=== PATIENT | female | born 1990 | race Caucasian/White ===

== ENCOUNTER → 2018-09-21 | Outpatient (CLI) | END | disposition home or self-care (01) ==

== ENCOUNTER 2019-05-08 06:15 | Inpatient (IN) | payer MEDICAID ==
[~2019-05-08] VITALS: Ht 160 cm; Wt 80.4 kg
[~2019-05-08 06:15] MED LIST: CALC667C PO; FER325 PO; IBUP-1544 PO; PERCOCET PO; PREN1TAB13 PO
[2019-05-08] MEDS ORDERED: LACTATED RINGER'S 1,000 ML IV SCH (06:43)
[2019-05-08 06:53] VITALS: Ht 160 cm; Wt 80.4 kg
[2019-05-08] MEDS ORDERED: IBUPROFEN 600 MG TAB PO PRN (07:00)
[2019-05-08] MEDS ORDERED: MINERAL OIL LIGHT 10 ML VIAL TOP PRN (07:00)
[2019-05-08] MEDS ORDERED: LIDOCAINE 1% (MPF) 30 ML INJ INJ PRN (07:00)
[2019-05-08] MEDS ORDERED: OXYTOCIN 30 UNITS/LR 500 ML IV SCH ×2 (07:00)
[2019-05-08] MEDS ORDERED: MISOPROSTOL 200 MCG TAB PR PRN ×2 (07:00→11:00)
[2019-05-08] MEDS ORDERED: OXYTOCIN 30 UNITS/LR 500 ML IV PRN ×2 (07:00→11:00)
[2019-05-08] MEDS ORDERED: METHYLERGONOVINE 0.2 MG INJ IM PRN ×2 (07:00→11:00)
[2019-05-08] MEDS ORDERED: CARBOPROST 250 MCG INJ IM PRN ×2 (07:00→11:00)
--- NOTE | 2019-05-08 07:15 | TRIAGE ---
OB Triage Datetime Report Generated by CPN: 05/08/2019 07:15 Datetime: 05/08/2019 07:13 Assessment Type: Admission Assessment Vaginal Bleeding: None Maternal Assessment Level of Consciousness: Keenly Alert, Responsive DTR's/Clonus: DTRs 2+; No Clonus Headache: Denies Blurred Vision: No Respiratory Effort: Unlabored; Regular Rhythm; Equal Expansion Breath Sounds, Left: Clear and Equal Breath Sounds, Right: Clear and Equal Nausea/Vomiting: Denies RUQ Epigastric Pain: Denies Facial Edema: None Fall Risk Assessment History of Falling: (0) No Secondary Diagnosis: (0) No Ambulatory Aid: (0) Bedrest/Nurse Assist Gait: (0) Normal/Bedrest/Immobile Mental Status: (0) Oriented to Own Ability Pain Assessment Pain Scale: 10 Pain Presence: Intermittent Pain Type: Contraction Pain Location: Abdomen; Back Pain Goal: 10 Datetime: 05/08/2019 06:42 Time of Arrival: 05/08/2019 06:15 EGA: 39.3 Arrived By: Wheelchair Arrived From: Home Chief Complaint: UC's since 0 Movement: Present Contractions: Regular Time Contractions Began: 05/08/2019 04:30 Contractions: Every 3 minutes Rupture of Membranes: Denies Vaginal Bleeding: None Vaginal Discharge: Denies Recent Sexual Intercouse: Denies Abdominal Trauma: Not Applicable Patient Complaints: Contractions Time Provider Notified: 05/08/2019 06:35 Provider Notified: Dr. Cedeño Initial Plan: CEFM, VE Datetime: 05/08/2019 06:32 Vaginal Exam Dilatation (cms): 9.0 Effacement (%): 90 Station: -1 Exam By: Tao Diane RN Vaginal Bleeding: Normal Show Cervix, Consistency: Soft Cervix, Position: Anterior Presentation 'A': Cephalic
--- NOTE | 2019-05-08 09:15 | HP ---
Date/Time of Note Date/Time of Note DATE: 05/08/19 TIME: 09:09 OB - History Hx of Present Free Text/Dictation 28 years old 4 para 1-0-2-1 with history of previous delivery and single intrauterine at 39 weeks and 3 days with DREAD of 05/12/2019 complaining of uterine contractions. She states good movement. She denies nausea, vomiting, shortness of breath, chest pain, headache, visual changes, vaginal bleeding or LOF. Chief Complaint: Uterine contractions Estimated Due Date: May 12, 2019 : 4 Para: 1 Spontaneous : 2 Therapeutic : 0 Care: Good Care Ultrasounds: Normal mid trimester US Obstetrical Complications: None Medical Complications: None Past Family/Social History * Past Medical, Surgical, Family and Obstetric Histories reviewed from chart. Blood Type: O+ Rubella: immune RPR/VDRL: Negative GBS Status: Negative HBsAG: Negative OB Admission Exam Vital Signs Vital Signs Blood pressure 110/62, pulse rate 69/minutes, respiratory rate 16/minutes, temperature 98.6 Physical Exam HEENT: WNL Heart: Rhythm Normal Lungs: Clear Abdomen: WNL Extremities: Normal Cervical Dilatation: 9cm Effacement: 100% Station: 0 Membranes: Intact Heart Rate: 130's Accelerations: Accelerations Present Decelerations: No Decelerations Varibility: Moderate Contractions on Admission: < 5 Minutes Apart Last 72 hours Lab Results CBC & BMP 05/08/19 06:57 OB Assessment/Plan Other plan: 28 years old 4 para 1-0-2-1 with history of delivery at 39 weeks and 3 days in active labor -FHR: No sign of metabolic acidosis- Category I -Continuous EFM, toco -CBC, blood type and screen -Analgesia options with R/B/A discussed in detail with patient -Epidural per patient request -Please see the orders -O+/Rubella: Immune -GBS: Negative 2) Previous delivery: On admission vaginal exam was 9/100/0. Risk of trial of labor after delivery including but not limited to bleeding, infection, cervical laceration, placental retention, injury to fetus, blood transfusion, blood transfusion related infection, risk of anesthesia, adhesion, episiotomy/laceration, uterine rupture, hypoxic encephalopathy, low score, hemorrhage, needs for emergency delivery with risk of bleeding, infection, injury to other organs (bowel, bladder, ureter, vessels, nerves), injury to fetus, blood transfusion, blood transfusion related infection, risk of anesthesia, adhesion and hernia formation, needs for future , removal of uterus or any other indicated surgery discussed with the patient. She expressed understanding and repeats the risks. All of her questions were answered. She desires TOLAC, signed the informed consent. Admission, procedures, expectations, risks and possible complications have been discussed in detail with the patient. Risk of vaginal delivery including but not limited to bleeding, infection, cervical laceration, placental retention, injury to fetus, blood transfusion, blood transfusion related infection, risk of anesthesia, adhesion, cervical laceration, episiotomy/laceration, possible delivery with risk of bleeding, infection, injury to other organs (bowel, bladder, ureter, vessels, nerves), injury to fetus, blood transfusion, blood transfusion related infection, risk of anesthesia, scar and hernia formation, needs for future , removal of uterus or any other indicated surgery discussed with the patient. She expressed understanding and repeats the risks. All of her questions were answered. She signed the informed consent. PHYSICIAN'S VERIFICATION OF INFORMED CONSENT The patient was counseled regarding the procedure, its indications, risks, potential complications and alternatives and any questions were answered. Consent was obtained. PLANNED PROCEDURE/TREATMENT: Vaginal delivery, episiotomy, repair of laceration possible delivery ANEL CORONEL May 08, 2019 09:15
--- NOTE | 2019-05-08 09:20 | LDN ---
Date/Time of Note Date/Time of Note DATE: 05/08/19 TIME: 09:15 Delivery Summary 28 years old 4 para 1-0-2-1 with previous delivery at 39 weeks and 3 days delivered a viable male over third-degree laceration. Nose and mouth suctioned. Rest of body delivered. Cord clamp and caught after stopping pulsation. Baby given to the nurse. Placenta delivered intact and spontaneously with three-vessel cord. Laceration repaired with 3-0 and 2-0 Vicryl. Patient tolerated procedure well. Time of delivery 07:55 Weight 3560 g - 7 pound 14 ounces Height 20 inches 9 at 1 minutes and 9 at 5 minutes EBL 300 ml, she received Pitocin and Methergine. Weeks of Gestation 39 weeks and 3 days Placenta Delivered: Spontaneously Meconium: none Episiotomy: No Estimated blood loss: 300 Sponge & Needle done & correct: Yes All needle counts correct: Yes Any foreign bodies felt in the: No Delivery Information Sex Sex: male Apgars 1 Minute: 9 5 Minute: 9 10 Minute: 10 Suctioning Nose & mouth suctioned at saray: Yes Umbilical Cord Umbilical cord with: 3 Vessels Cord presentations: no nuchal cord Cord Blood was obtained: Yes Mother & Baby Disposition Disposition Mom & Baby to Maternity; Good: Yes ANEL CORONEL May 08, 2019 09:20
[2019-05-08 10:10] VITALS: BP 127/59; PULSE 86; RESP 20
[2019-05-08] MEDS ORDERED: BENZOCAINE 20% 56 ML SPRAY TOP PRN (11:00)
[2019-05-08] MEDS ORDERED: OXYCODONE/ASPIRIN (4.88/325) TAB PO PRN (11:00)
[2019-05-08] MEDS ORDERED: DIPHENHYDRAMINE 50 MG INJ IV PRN (11:00)
[2019-05-08] MEDS ORDERED: LANOLIN HPA 1 PKT TOP PRN (11:00)
[2019-05-08] MEDS ORDERED: WITCH HAZEL/GLYCERIN PAD PR PRN (11:00)
[2019-05-08] MEDS ORDERED: ACETAMINOPHEN 325 MG TAB PO PRN (11:00)
[2019-05-08] MEDS ORDERED: DIBUCAINE 1% 30 GM OINT TOP PRN (11:00)
[2019-05-08] MEDS ORDERED: ONDANSETRON 4 MG INJ IV PRN (11:00)
[2019-05-08] MEDS ORDERED: ZOLPIDEM 5 MG TAB PO PRN (11:00)
[2019-05-08] MEDS: IBUPROFEN 600 MG TAB PO SCH ×3 (13:15→23:56)
[2019-05-08 16:00] VITALS: BP 116/62; PULSE 85; RESP 18
[2019-05-08] MEDS: DEXTROSE 5%-LR 1,000 ML IV SCH (19:00)
[2019-05-08] MEDS: LACTATED RINGER'S 1,000 ML IV* SCH (19:00)
[2019-05-08 20:00] VITALS: BP 113/73; PULSE 86; RESP 18
[2019-05-09] VITALS: BP 99/59; PULSE 66; RESP 18
[2019-05-09] MEDS: DEXTROSE 5%-LR 1,000 ML IV SCH ×2 (02:42→10:42)
[2019-05-09] MEDS: LACTATED RINGER'S 1,000 ML IV* SCH ×2 (02:42→10:42)
[2019-05-09 04:00] VITALS: BP 108/55; PULSE 62; RESP 18
[2019-05-09] MEDS: IBUPROFEN 600 MG TAB PO SCH ×3 (06:04→18:00)
[2019-05-09 08:00] VITALS: BP 96/56; PULSE 69; RESP 18
--- NOTE | 2019-05-09 14:39 | DS ---
Date/Time of Note Date/Time of Note Home today or next day DATE: 05/09/19 Obstetrical Discharge Record Final Diagnosis Final Diagnosis: Term delivered Other Final Diagnosis Status post vaginal delivery Vaginal Delivery Obstetrical Delivery: Spontaneous, Laceration, Repaired, Successful Condition on Discharge Physical Assessment Last Vitals: See nurse's notes Voiding: Yes Bowel Movement: Yes Breast: Soft, non-tender, Filling Fundus: Firm Abdomen and Incision: Abdomen is soft with present bowel sounds Episiotomy: Perineum is healing well and appears clean Calf Tenderness: No Patient Condition: Good REG RON MD May 09, 2019 14:39
--- NOTE | 2019-05-09 14:45 | PD.PPDC ---
DISABILITY BENEFITS SPECIALIST Discharge Instruction Provider Information Physician Information 27-year-old female had vaginal delivery after section Diagnosis [id number] Final Diagnosis: Ummuh2s Status post vaginal delivery after section Condition [id number] Patient Condition: Epvcq7s Good Diet [id number] Diet: Rvcek4y Resume Regular Diet Activity/Restrictions [id number] Activity: [id number] Normal Activity May Shower [id number] Restrictions: Dycou9u Nothing in the Vagina [id number] Return to Work or School: [id number] Jun 24, 2019 Follow-up Follow-up with Physician: 2, 4, Week/Weeks Return to clinic for [id number] OB Instructions: [id number] Breast Tenderness Depression Comment: Pelvic rest for 6 weeks REG RON MD May 09, 2019 14:45
[2019-05-09] MEDS ORDERED: IBUP-1542 PO (14:48)
[2019-05-09 16:00] VITALS: BP 114/60; PULSE 74
[2019-05-09 20:20] VITALS: BP 113/67; PULSE 73; RESP 20
[2019-05-09] MEDS: SENNA/DOCUSATE NA (8.6MG/50MG) TAB PO PRN (21:00)
[2019-05-10] MEDS: IBUPROFEN 600 MG TAB PO SCH ×3 (00:03→12:08)
[2019-05-10 09:00] VITALS: BP 107/64; PULSE 65; RESP 18
[2019-05-10] MEDS ORDERED: MEASLES,MUMPS,RUBELLA VACCINE INJ SC* ONE (09:00)
[2019-05-10] MEDS ORDERED: DIPHTH/TET/ACEL PERTUSS (ADULT) 0.5 ML VIAL IM* ONE (09:00)
[2019-05-10] MEDS: SENNA/DOCUSATE NA (8.6MG/50MG) TAB PO PRN (12:07)
== END 2019-05-10 16:15 | disposition home or self-care (01) | DRG 768 ==
LOC: OBT 06:15 → L-D 06:15 → OBT 06:35 → L-D 06:36 → PP1 10:17
PROVIDERS: ADMIT Obstetrics & Gynecology; ATTEND Obstetrics & Gynecology
PROC: 10E0XZZ Delivery of Products of Conception, External Approach (ICD-10-PCS; principal; 2019-05-08)
PROC: 0DQR0ZZ Repair Anal Sphincter, Open Approach (ICD-10-PCS; 2019-05-08)
PROC: 4A1HXCZ Monitoring of Products of Conception, Cardiac Rate, External Approach (ICD-10-PCS; 2019-05-08)
DX: O34.219 Maternal care for unspecified type scar from previous cesarean delivery (principal); Z37.0 Single live birth; O70.20 Third degree perineal laceration during delivery, unspecified; Z3A.39 39 weeks gestation of pregnancy
CPT/HCPCS: 85025; 85610; 85730; 86592; 86850; 86900; 86901; 87340; G0463; J2210; J2590; J7120; J7121